=== PATIENT | male | born 1975 | race Caucasian/White ===

== ENCOUNTER 2019-07-12 08:02 | Emergency (ER) | payer OTHER ==
[~2019-07-12] VITALS: Ht 175.3 cm; Wt 88.5 kg
[2019-07-12] MEDS ORDERED: NORVASC5 MG PO (08:16)
[2019-07-12 08:22] LABS: URINE BILIRUBIN NEGATIVE (Negative); URINE BLOOD TRACE (Negative); URINE CLARITY CLEAR; URINE COLOR YELLOW; URINE GLUCOSE-RANDOM* NEGATIVE (Negative); URINE KETONES NEGATIVE (Negative); URINE LEUKOCYTES NEGATIVE (Negative); URINE NITRITE NEGATIVE (Negative); URINE PROTEIN (DIPSTICK) TRACE (Negative)
[2019-07-12 08:29] LABS: HEMOGLOBIN 16.5 gm/dL (14.0-18.0)
[2019-07-12 08:30] LABS: HEMATOCRIT 46.4 % (42.0-52.0); MCH 31.5 pg (26.0-34.0); MCHC 35.6 g/dL (28.0-37.0); MCV 88.6 fL (80.0-100.0); PLATELET COUNT 261 thou/uL (150-400); RBC 5.24 mil/uL (4.50-6.00); WBC 7.3 thou/uL (4.0-11.0)
[2019-07-12 08:41] LABS: CALCIUM 10.1 mg/dL (8.5-10.1); CREATININE 1.2 mg/dL (0.7-1.3); POTASSIUM 3.8 mmol/L (3.5-5.1)
[2019-07-12 08:47] LABS: ALBUMIN 4.8 g/dL (3.4-5.0); TOTAL BILIRUBIN 1.6 mg/dL (<0.1-1.0); TOTAL PROTEIN 8.6 g/dL (6.4-8.2)
[2019-07-12 09:24] LABS: PLATELET ESTIMATE NORMAL
[2019-07-12] MEDS ORDERED: NORCO 5-325 TA1 EAC1 PO (10:03)
[2019-07-12 10:24] VITALS: BP 160/87
== END 2019-07-12 10:24 | disposition home or self-care (01) ==
LOC: ER 08:02
PROVIDERS: Emergency Medicine
DX: R10.9 Unspecified abdominal pain (principal); I10 Essential (primary) hypertension; Z88.2 Allergy status to sulfonamides; Z87.442 Personal history of urinary calculi